=== PATIENT | male | born 1995 | race Two or more races ===

== ENCOUNTER → 2025-03-18 | Outpatient (CLI) | payer OTHER, SELFPAY ==
[2025-03-18 13:58] LABS: Absolute Lymphocyte Count 1.67 X10^3/uL (0.83-4.51); Absolute Neutrophil Count 3.3 X10^3/uL (2.0-7.7); Basophil# 0.03 X10^3/uL; Basophil% 0.5 % (0-1); Eosinophil# 0.15 X10^3/uL; Eosinophils% 2.7 % (0-5); Hematocrit 45.4 % (40-54); Hemoglobin 15.6 g/dL (13.0-16.5); Lymphocyte # 1.67 X10^3/ul (0.83-4.51); Lymphocyte % 30.2 % (19-41); Mean Corp Hgb Conc 34.4 g/dL (32-36); Mean Corpuscular Hgb 26.3 pg (27.0-32.0); Mean Corpuscular Volume 76.6 fL (80-94); Mean Platelet Vol. 9.5 fl (6.2-12.0); Monocyte# 0.33 X10^3/uL; NRBC Flagged by Analyzer 0 % (0-5); Neutrophil # 3.34 X10^3/uL (2.7-7.7); Neutrophil % 60.4 % (47-70); Platelet Count 251 K/mm3 (150-450); RBC Distribution Width SD 33.1 fl (35.1-43.9); Red Blood Count 5.93 M/mm3 (4.6-6.2); White Blood Count 5.5 K/mm3 (4.4-11.0)
[2025-03-18 14:14] LABS: ALB/GLOB Ratio 1.7 RATIO (0.9-2.4); AST(SGOT) 29 U/L (<=37); Alanine Aminotransfer ALT/SGPT 38 U/L (<=46); Albumin, Serum 4.8 g/dL (3.5-5.0); Alkaline Phosphatase 107 U/L (40-129); Anion Gap 10 (5-15); BUN 6 mg/dL (4-19); Calcium,Total 9.6 mg/dL (7.6-11.0); Chloride 102 mmol/L (98-108); Creatinine, Serum 0.72 mg/dL (0.70-1.20); EST Glomerular Filtration Rate 127 (>60); Globulin 2.8 g/dL (2.2-4.2); Glucose 93 mg/dL (70-99); Potassium 4.2 mmol/L (3.3-5.1); Protein, Total 7.6 g/dL (5.9-8.4); Sodium Level 139 mmol/L (133-145); Total Bilirubin 0.47 mg/dL (0.00-1.30)
[2025-03-18 14:34] LABS: CRP < 3.00 mg/L (0.0-3.0)
== END | disposition home or self-care (01) ==
LOC: LAB 12:23
PROVIDERS: PCP Registered Nurse; Referring Provider Nurse Practitioner Acute Care; Visit Provider Nurse Practitioner Acute Care
DX: R10.13 Epigastric pain (principal); R63.4 Abnormal weight loss
CPT/HCPCS: 36415; 80053; 85025; 86140

== ENCOUNTER → 2025-03-19 | Outpatient (CLI) | payer OTHER, SELFPAY ==
[2025-03-22 18:08] LABS: H. PYLORI STOOL AG Positive (Negative)
== END | disposition home or self-care (01) ==
PROVIDERS: PCP Registered Nurse; Referring Provider Nurse Practitioner Acute Care; Visit Provider Nurse Practitioner Acute Care
DX: R10.13 Epigastric pain (principal); R63.4 Abnormal weight loss
CPT/HCPCS: 87338

== ENCOUNTER 2025-05-14 10:53 | Day surgery (SDC) | payer OTHER, SELFPAY ==
[2025-05-14] VITALS (9 sets, daily range): BP systolic 96–113; BP diastolic 50–71; PULSE 59–74; RESP 12–16; TEMP 36.6–37.2; O2SAT 98–100; BMI 24.2
[2025-05-14] MEDS: Lactated Ringers 1,000 ML 15 ML IV (11:38)
--- NOTE | 2025-05-14 11:42 | PRE.ANES_ITS ---
ASA Classification* ASA Classification ASA Classification: 1 Assessment & Plan Anesthesia* Anesthesia Assessment Anesthesia Assessment: Discussed sedation and/or anesthesia options, risks, benefits, and alternatives with patient/parents/legal guardian/POA. Questions invited. The patient/parents/legal guardian/POA seems to understand and agrees to proceed with anesthesia plan. Reviewed the physical assessment, medical history, allergy history and patient home medications list prior to surgery/procedure/anesthetic and documented any changes. Performed airway and anesthesia risk assessments. Anesthesia Type Anesthesia Type: MAC History Source History Obtained from:: Patient and Chart Anesthesia Focused Assessment* Temperature: 98.7 F Pulse Rate: 74 Blood Pressure: 113/71 Respiratory Rate: 16 Pulse Ox: 100 Oxygen Delivery Method: Room Air Airway Assessment Mouth opens: >3 cm Mallampati Score: II Teeth Condition: Intact Neck Range of motion (ROM): Full ROM Labs Anesthesia Preop lab: CBC WBC 5.5 K/mm3 (4.4-11.0) 03/18/25 12:03/18/25 RBC 5.93 M/mm3 (4.6-6.2) 03/18/25 12:03/18/25 Hgb 15.6 g/dL (13.0-16.5) 03/18/25 12:03/18/25 Hct 45.4 % (40-54) 03/18/25 12:03/18/25 Plt Count 251 K/mm3 (150-450) 03/18/25 12:03/18/25 CHEMISTRY Potassium 4.2 mmol/L (3.3-5.1) 03/18/25 12:03/18/25 Sodium 139 mmol/L (133-145) 03/18/25 12:03/18/25 BUN 6 mg/dL (4-19) 03/18/25 12:03/18/25 Creatinine 0.72 mg/dL (0.70-1.20) 03/18/25 12:03/18/25 Glucose 93 mg/dL (70-99) 03/18/25 12:03/18/25 COAG Pre-Assessment Diagnosis/Proposed Procedure Planned Operative Procedure(s): Colonoscopy,EGD Anesthesia History 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 When Was Last Pacemaker Check QUESTION #4 FULL TEXT: You/Your Family Experience fever (hyperthermia) with Anesthesia Last Oral Intake Last Oral intake: Last Oral Intake NPO since 06:00 05/14/25 11:24 Meds taken in AM with sips of No 05/14/25 11:24 water? Meds patient instructed to take am of surgery Any additional information?: Yes NPO since: 06:00 (Patient finished prep at 6 AM.) PONV PONV - hearing aid assembly supervisor: PONV - hearing aid assembly supervisor Female No 05/13/25 08:33 HX of Motion Sickness No 05/13/25 08:33 HX of N/V After Surgery No 05/13/25 08:33 Non-Smoker Yes 05/13/25 08:33 Duration of Surgery greater No 05/13/25 08:33 than 60 minutes Number of Risk Factors 1 05/13/25 08:33 PONV Score Low Risk 05/13/25 08:33 Height & Weight Height & Weight: Anesthesia: Height & Weight Height 6 ft 05/14/25 11:24 Weight: 81 kg 05/14/25 11:24 Body Mass Index (BMI) 24.2 05/14/25 11:24 Respiratory Assessment Respiratory Assessment - hearing aid assembly supervisor: Respiratory Tract Infection Hx - hearing aid assembly supervisor Hx Respiratory Tract Infection No 05/13/25 08:33 STOP Sleep Apnea STOP Sleep Apnea - hearing aid assembly supervisor: STOP Sleep Apnea - hearing aid assembly supervisor Hx Hypertension No 05/13/25 08:33 Hx Sleep Apnea No 05/13/25 08:33 CPAP BIPAP Do you snore loudly (louder No 05/13/25 08:33 than talking or can be heard Do you often feel tired/ No 05/13/25 08:33 fatigued/ sleepy during daytime? Has anyone observed you stop No 05/13/25 08:33 breathing during sleep? STOP Results Negative 05/13/25 08:33 QUESTION #5 FULL TEXT : Do you snore loudly (louder than talking or can be heard through closed doors)? 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 Specify any problems Hx of Preganancy in last 3 N/A 05/13/25 08:33 Months Nurse Filling Out Transfusion JZOLLMIKEL 05/13/25 08:33 & Questions: Date: 05/13/25 05/13/25 08:33 Time: 08:35 05/13/25 08:33 Patient unable to answer at this time (ie. confused, unrespo /Reproduction History /Reproductive History - hearing aid assembly supervisor: /Reproductive Hx- hearing aid assembly supervisor Hx Now No 05/13/25 08:33 Gestational Age (in weeks): EDC: Hx Hx Para Hx Section SAB No 05/13/25 08:33 Active Medications Active Medications: Current Medications Generic Name Dose Route Start Last Admin Trade Name Tyree PRN Reason Stop Dose Admin Lactated Ringer's 1,000 mls @ 15 mls/hr 05/14/25 11:30 05/14/25 11:38 IV 15 mls/hr .Q48H ROSIO Administration PFSH Medical History (Updated 05/13/25 @ 08:33 by Sarah Martin) Gastric reflux Non-smoker Hemorrhoids History of colon polyps Colitis Home Medications ?Medication ?Instructions ?Recorded ?Last Taken ?Type ondansetron HCl 4 mg tablet 4 mg PO .COMPLEX #5 tabs 0 03/18/25 Unknown Rx sodium sul 1.479 gram-potas ch See Rx Instructions PO PER PKG DIR 03/18/25 Unknown Rx 0.188 gram-magnes sul 0.225 gram #24 tabs tablet (Sutab) Allergy/AdvReac Type Severity Reaction Status Date / Time No Known Allergies Allergy Verified 05/14/25 11:22 Surgical History (Updated 05/14/25 @ 11:[address] Les Huerta MD) Hx of left knee surgery Social History (Updated 03/18/25 @ 11:13 by Lavinia Davalos) current occupational status: employed Smoking Status: Never smoker alcohol intake: never substance use type: does not use what type of physical activity do you participate in: weight training Review of Systems (Anesthesia) ROS Narrative System reviewed and no additional complaints, except as documented.
--- NOTE | 2025-05-14 12:00 | COLBX_PTH ---
PATIENT: SALVADOR CALDERON LOC: EN U#:[id number] AGE/SX: 29/M ROOM: RE05/14/[address]: Dr. Chester Nicole DO : 1995 BED: DIS: 05/14/2025 SPEC #: [id number] RECD: 05/14/25 15:53 STATUS: BRADY REJanna #: [id number] GEOVANNA: 05/14/25 12:[address]: Chester Nicole DEPT: SURGICAL PATHOLOGY RECD BY: Jairo Hernandez ENTERED: 05/15/25 09:24 SP TYPE: COLON BX OTHR DR: Ava Story, HEAD IRRIGATOR-C Tissues: A - Gastric mucous membrane B - Duodenum, NOS C - Ileum, NOS D - COLON BIOPSY Procedures: Immunohistochemical Stains Surgery Specimen Level IV HEADER OPERATION: Colonoscopy with biopsy, EGD with biopsy PRE-OP DIAGNOSIS: Abdominal pain, dyspepsia, heartburn, weight loss TISSUE SUBMITTED: A- Gastric body biopsy, B- Duodenum biopsy, C- Terminal ileum biopsy, D- Random colon biopsy MICROSCOPIC DIAGNOSIS A. Gastric body, biopsy: - Oxyntic mucosa with mildly active chronic inflammation. - IHC negative for H.pylori organisms. B. Duodenum, biopsy: - No specific pathologic change. - Negative for increased intraepithelial lymphocytes. C. Terminal ileum, biopsy: - Focal prominent mucosal lymphoid tissue, favor reactive. D. Colon, random biopsy: - No specific pathologic change. MICROSCOPIC DESCRIPTION Slides are reviewed. All matched controls reacted appropriately. These tests were developed and their performance characteristics determined by [facility]. They may not have been cleared or approved by the U.S. Food and Drug Administration. The FDA has determined that such clearance or approval is not necessary. The above immunohistochemical/dualISH markers are viewed by the Pathologist. GROSS DESCRIPTION A. Received in fixative is one container labeled with the patient's name and designated Gastric body biopsy. The specimen consists of four irregular fragments of light dejesus soft tissue that in aggregate measure 0.3 to 0.7 cm. The specimen is totally submitted in one cassette. B. Received in fixative is one container labeled with the patient's name and designated Duodenum biopsy. The specimen consists of two irregular fragments of light dejesus soft tissue that in aggregate measure 0.3 and 0.6 cm. The specimen is totally submitted in one cassette. C. Received in fixative is one container labeled with the patient's name and designated Terminal ileum biopsy. The specimen consists of two irregular fragments of light dejesus soft tissue, each measuring 0.3 cm. The specimen is totally submitted in one cassette. D. Received in fixative is one container labeled with the patient's name and designated Random colon biopsy. The specimen consists of multiple irregular fragments of light dejesus soft tissue that in aggregate measure 1.4 x 0.5 x 0.1 cm. The specimen is totally submitted in one cassette. [place] 05/15/2025 CPT:51138s6,62974
--- NOTE | 2025-05-14 12:38 | HP.PCM_ITS ---
HPI - General General Date of Admission: 05/14/25 Date of Service: 05/22/25 Chief Complaint: Abnormal imaging HPI Narrative SALVADOR CALDERON, is a 29 M who presents abdominal pain with the Chief Complaint: hurting my colon - in 2019 in [facility] - he had hemorrhoids - last July - was having a lot of abdominal pain, lower abdomen - reports he had an US of the colon which revealed colon polyps - colonoscopy/egd was recommended but was in the middle of doing the [employer] process and now ready to do - really watching the dairy and spicy foods, coffee and caffeine - sharp pain, causes him to not move sometimes - reports when he had the US he also had blood work that showed an infection related to the polyps, he was treated and states a follow-up blood test showed the infection was decreasing - Heartburn - not taking any medication - denies any N/V - weight loss of about 15lbs in the past year - denies any dysphagia - he is having a BM daily - Type 6 or Type 3 - blood on tissue - not currently using anything for hemorrhoids - straining with BM at times B: banana, toast L: turkey sandwich, vegetable/fruit D: lean meat, fruit/vegetable - drinks a lot of water - 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 [facility] Medical History Gastric reflux Non-smoker Hemorrhoids History of colon polyps Colitis Home Medications ?Medication ?Instructions ?Recorded ?Last Taken ?Type ondansetron HCl 4 mg tablet 4 mg PO .COMPLEX #5 tabs 0 03/18/25 Unknown Rx sodium sul 1.479 gram-potas ch See Rx Instructions PO PER PKG DIR 03/18/25 Unknown Rx 0.188 gram-magnes sul 0.225 gram #24 tabs tablet (Sutab) Allergy/AdvReac Type Severity Reaction Status Date / Time No Known Allergies Allergy Verified 05/14/25 11:22 Surgical History Hx of left knee surgery Social History current occupational status: employed Smoking Status: Never smoker alcohol intake: never substance use type: does not use what type of physical activity do you participate in: weight training ROS Constitutional Constitutional: Denies fatigue, fever(s), poor appetite, weight gain or weight loss Gastrointestinal Gastrointestinal: Denies belching, bloating, change in bowel habits, change in stool character, chewing difficulty, coffee ground emesis, constipation, cramping, diarrhea, dyspepsia, dysphagia, early satiety, excessive flatus, fecal incontinence, heartburn, hematemesis, hematochezia, hemorrhoids, loose stools, melena, nausea, odynophagia, rectal bleeding, tenesmus, vomiting or weight changes Vital Signs Vital Signs Vital Signs: 05/14/25 11:24 05/14/25 11:24 05/14/25 11:50 Temperature 98.7 F 98.7 F Temperature Source Temporal Pulse Rate 74 74 Respiratory Rate 16 16 Respiratory Pattern Normal Blood Pressure 113/71 113/71 Blood Pressure Mean 85 Blood Pressure Source Monitor Blood Pressure Position Semi-Fowlers Blood Pressure Location Right Arm Pulse Ox 100 100 Oxygen Delivery Method Room Air Room Air Weight Weight: 178 lb 9.191 oz Body Mass Index (BMI) 24.2 Physical Exam Const alert, oriented x3, no apparent distress and healthy appearing General Appearance: cooperative GI normal to inspection, nondistended, normoactive bowel sounds, soft to palpation, non-tender and non-distended Percussion: normal to percussion Rectal Exam: deferred Assessment & Plan Assessment/Plan (1) Weight loss: (2) Heartburn: (3) Dyspepsia: (4) Abdominal pain: PLAN: Assessment and Plan Assessment and Plan (1) Abdominal pain: Status: Acute (2) Dyspepsia: Status: Acute (3) Heartburn: Status: Acute (4) Weight loss: Status: Acute Orders: Orders CBC W/Diff, Automated Today R10.13 - Epigastric pain, R10.9 - Unspecified abdominal pain, R12 - Heartburn, R63.4 - Abnormal weight loss Comprehensive Metabolic Profil Today R10.13 - Epigastric pain, R10.9 - Unspecified abdominal pain, R12 - Heartburn, R63.4 - Abnormal weight loss CRP Today R10.13 - Epigastric pain, R10.9 - Unspecified abdominal pain, R12 - Heartburn, R63.4 - Abnormal weight loss H. PYLORI STOOL AG Today R10.13 - Epigastric pain, R10.9 - Unspecified abdominal pain, R12 - Heartburn, R63.4 - Abnormal weight loss Medications: New pantoprazole take once daily 30 minutes before a meal 40 mg PO QDAY 30 tabs 3RF sod sulf-pot chloride-mag sulf 1.479-0.188- 0.225 gram (Sutab) as directed for split dose bowel prep 24 tabs 0RF ondansetron HCl 4 mg orally; one every 4 hours as needed for N/V during bowel prep 5 tabs 0RF Plan 29y/o male presents for initial consultation with complaints of lower abdominal pain, change in bowel habits, weight loss, and heartburn. He recently moved to the [facility] from [facility]. He was experiencing the symptoms this past July when living in [facility] and reports a pelvic abdominal ultrasound revealed polyps in the colon and blood work revealed an infection related to the colon polyps. He reports he was treated and follow-up blood work showed resolving infection. I have ordered labs, H. pylori stool testing and scheduled him for bidirectional endoscopies. He will start a daily PPI after completion of stool testing. Note: Syntertainment speech recognition chief transfer and pumphouse operator software was used to create portions of this document. Sound-alike and misspelled words, as well as other chief transfer and pumphouse operator errors may be contained in the documentation. Patient Instructions: Complete labs and stool testing Fibercon 2 tablets once daily with 8 ounces of water after a meal. May take up to 3 weeks for symptom improvement. Start a probiotic (Align, Culturelle or [employer]) once daily. These are all multispecies probiotics, pick the cheapest one. Pantoprazole 40mg once daily - do not start until after completion of stool collection Colonoscopy and EGD - SuFlave Follow-up in office post procedures
--- NOTE | 2025-05-14 13:21 | PCM.POST.ANE ---
Anesthesia: Postop Eval I Current Vital Signs Temperature: 97.8 F Pulse Rate: 65 Blood Pressure: 98/54 Respiratory Rate: 12 Pulse Ox: 98 Oxygen Delivery Method: Room Air Assessment Airway patent: Yes Spontaneous unlabored respirations: Yes Mental status: Awake and Calm nausea: No Vomiting: No Anesthesia Complication: No Fluid Hydration Crystalloid volume administer (ml): 300 Total IV fluid infused: 300 Progress Note Anesthesia document: Postop Eval 1 completed: Yes
--- NOTE | 2025-05-14 13:25 | OP.EGD_ITS ---
Patient Name: Uri Hill Procedure Date: 05/14/2025 12:38 PM Date of : 1995 Age: 29 Procedure: Upper GI endoscopy Indications: Epigastric abdominal pain, Dyspepsia, Indigestion Providers: Chester Nicole DO Referring MD: Vitaliy Frias Medicines: Monitored Anesthesia Care Patient Profile: This is a 29 year old male. Refer to note in patient chart for documentation of history and physical. Patient has symptoms. Complications: No immediate complications. Procedure: Pre-Anesthesia Assessment: - Prior to the procedure, a History and Physical was performed, and patient medications and allergies were reviewed. The patient is competent. The risks and benefits of the procedure and the sedation options and risks were discussed with the patient. All questions were answered and informed consent was obtained. Patient identification and proposed procedure were verified by the physician in the pre-procedure area. Mental Status Examination: alert and oriented. Airway Examination: normal oropharyngeal airway and neck mobility. Respiratory Examination: clear to auscultation. CV Examination: normal. Prophylactic Antibiotics: The patient does not require prophylactic antibiotics. Prior Anticoagulants: The patient has taken no anticoagulant or antiplatelet agents except for NSAID medication. ASA Grade Assessment: II - A patient with mild systemic disease. After reviewing the risks and benefits, the patient was deemed in satisfactory condition to undergo the procedure. The anesthesia plan was to use monitored anesthesia care (MAC). Immediately prior to administration of medications, the patient was re-assessed for adequacy to receive sedatives. The heart rate, respiratory rate, oxygen saturations, blood pressure, adequacy of pulmonary ventilation, and response to care were monitored throughout the procedure. The physical status of the patient was re-assessed after the procedure. After obtaining informed consent, the endoscope was passed under direct vision. Throughout the procedure, the patient's blood pressure, pulse, and oxygen saturations were monitored continuously. The Colonoscope was introduced through the mouth, and advanced to the fourth part of the duodenum. Small bowel enteroscopy was deemed necessary. The upper GI endoscopy was accomplished without difficulty. The patient tolerated the procedure well. Scope In: 12:55:07 PM Scope Out: 12:58:04 PM Total Procedure Duration Time 0 hours 2 minutes 57 seconds Findings: The examined esophagus was normal. Patchy moderately erythematous mucosa with bleeding was found in the gastric body. Biopsies were taken with a cold forceps for histology. Verification of patient identification for the specimen was done. Biopsies were taken with a cold forceps for Helicobacter pylori testing. Verification of patient identification for the specimen was done. Estimated blood loss was minimal. Patchy moderately erythematous mucosa without active bleeding and with no stigmata of bleeding was found in the entire duodenum. Biopsies were taken with a cold forceps for histology. Verification of patient identification for the specimen was done. Estimated blood loss was minimal. Impression: - Normal esophagus. - Erythematous mucosa in the gastric body. Biopsied. - Erythematous duodenopathy. Biopsied. Recommendation: - Discharge patient to home. - Continue present medications. Procedure Code(s): --- Professional --- 33943, Small intestinal endoscopy, enteroscopy beyond second portion of duodenum, not including ileum; with biopsy, single or multiple CPT copyright 2021 [employer]. All rights reserved. The codes documented in this report are preliminary and upon tank shop supervisor review may be revised to meet current compliance requirements. Chester Nicole DO 05/14/2025 1:24:51 PM This report has been signed electronically. Number of Addenda: 0 Note Initiated On: 05/14/2025 12:38 PM
--- NOTE | 2025-05-14 13:25 | OP.PROVAT_ITS ---
05/14/2025 Vitaliy Frias Re : Upper GI endoscopy procedure for Uri Hill Dear Jez This procedure was performed on Wednesday, May 14, 2025. My impressions and recommendations are as follows: Impressions : - Normal esophagus. - Erythematous mucosa in the gastric body. Biopsied. - Erythematous duodenopathy. Biopsied. Recommendations : - Discharge patient to home. - Continue present medications. My findings are described in the full procedure note, which is enclosed. If I can be of further assistance, please feel free to contact me at . Sincerely, Chester Nicole, 05/14/2025 1:24:51 PM This report has been signed electronically.
--- NOTE | 2025-05-14 13:28 | OP.PROVAT_ITS ---
05/14/2025 Vitaliy Frias Re : Colonoscopy procedure for Uri Hill Dear Jez This procedure was performed on Wednesday, May 14, 2025. My impressions and recommendations are as follows: Impressions : - Congested mucosa in the recto-sigmoid colon, in the transverse colon and in the ascending colon. Biopsied. - The examined portion of the ileum was normal. Biopsied. Recommendations : - Discharge patient to home. - Resume previous diet. - Continue present medications. - Await pathology results. - Repeat colonoscopy for surveillance based on pathology results. My findings are described in the full procedure note, which is enclosed. If I can be of further assistance, please feel free to contact me at . Sincerely, Chester Nicole, 05/14/2025 1:27:54 PM This report has been signed electronically.
--- NOTE | 2025-05-14 13:28 | OP.COLON_ITS ---
Patient Name: Uri Hill Procedure Date: 05/14/2025 12:58 PM Date of : 1995 Age: 29 Procedure: Colonoscopy Indications: Generalized abdominal pain, Clinically significant diarrhea of unexplained origin Providers: Chester Nicole DO Referring MD: Vitaliy Frias Medicines: Monitored Anesthesia Care Patient Profile: This is a 29 year old male. Refer to note in patient chart for documentation of history and physical. Patient has symptoms. Last Colonoscopy: none. The patient's first colonoscopy is today. Complications: No immediate complications. Procedure: Pre-Anesthesia Assessment: - Prior to the procedure, a History and Physical was performed, and patient medications and allergies were reviewed. The patient is competent. The risks and benefits of the procedure and the sedation options and risks were discussed with the patient. All questions were answered and informed consent was obtained. Patient identification and proposed procedure were verified by the physician in the pre-procedure area. Mental Status Examination: alert and oriented. Airway Examination: normal oropharyngeal airway and neck mobility. Respiratory Examination: clear to auscultation. CV Examination: normal. Prophylactic Antibiotics: The patient does not require prophylactic antibiotics. Prior Anticoagulants: The patient has taken no anticoagulant or antiplatelet agents except for NSAID medication. ASA Grade Assessment: II - A patient with mild systemic disease. After reviewing the risks and benefits, the patient was deemed in satisfactory condition to undergo the procedure. The anesthesia plan was to use monitored anesthesia care (MAC). Immediately prior to administration of medications, the patient was re-assessed for adequacy to receive sedatives. The heart rate, respiratory rate, oxygen saturations, blood pressure, adequacy of pulmonary ventilation, and response to care were monitored throughout the procedure. The physical status of the patient was re-assessed after the procedure. After I obtained informed consent, the scope was passed under direct vision. Throughout the procedure, the patient's blood pressure, pulse, and oxygen saturations were monitored continuously. The Colonoscope was introduced through the anus and advanced to the terminal ileum. The colonoscopy was performed without difficulty. Scope In: 1:00:16 PM Scope Withdrawal Time 0 hours 5 minutes 50 seconds Scope Out: 1:09:53 PM Total Procedure Duration Time 0 hours 9 minutes 37 seconds Findings: The perianal and digital rectal examinations were normal. An area of mildly congested mucosa was found in the recto-sigmoid colon, in the transverse colon and in the ascending colon. Biopsies were taken with a cold forceps for histology. Verification of patient identification for the specimen was done. Estimated blood loss was minimal. The terminal ileum appeared normal. Biopsies were taken with a cold forceps for histology. Verification of patient identification for the specimen was done. Estimated blood loss was minimal. Impression: - Congested mucosa in the recto-sigmoid colon, in the transverse colon and in the ascending colon. Biopsied. - The examined portion of the ileum was normal. Biopsied. Recommendation: - Discharge patient to home. - Resume previous diet. - Continue present medications. - Await pathology results. - Repeat colonoscopy for surveillance based on pathology results. Procedure Code(s): --- Professional --- 67648, Colonoscopy, flexible; with biopsy, single or multiple CPT copyright 2021 [employer]. All rights reserved. The codes documented in this report are preliminary and upon instrument and electrical technician review may be revised to meet current compliance requirements. Chester Nicole DO 05/14/2025 1:27:54 PM This report has been signed electronically. Number of Addenda: 0 Note Initiated On: 05/14/2025 12:58 PM
--- NOTE | 2025-05-14 20:24 | POSTOPAN2_ITS ---
Anesthesia Postop Eval I Sum Postop Eval Completion status Anesthesia document: Postop Eval 1 completed: Yes Anesthesia Postop Eval I Summary Anesthesia Postop Eval I Summary: Anesthesia Postop Eval I: Assessment Summary Airway patent Yes 05/14/25 13:22 GENERAL MAINTENANCE [email or web address] Spontaneous unlabored Yes 05/14/25 13:22 GENERAL MAINTENANCE ENGINEER.[email or web address] respirations Mental status Awake,Calm 05/14/25 13:22 GENERAL MAINTENANCE ENGINEER.GDOTT nausea No 05/14/25 13:22 GENERAL MAINTENANCE ENGINEER.[email or web address] Vomiting No 05/14/25 13:22 GENERAL MAINTENANCE ENGINEER.[email or web address] Anesthesia Postop Eval I: Fluid Summary Crystalloid volume administer 300 05/14/25 13:22 GENERAL MAINTENANCE ENGINEER.GDOTT (ml) Colloids volume administered ( ml) Blood Product volume administered (ml) Total IV fluid infused 300 05/14/25 13:22 GENERAL MAINTENANCE ENGINEER.GDOTT Anesthesia Postop Eval I: Summary Notes Anesthesia Complication No 05/14/25 13:22 GENERAL MAINTENANCE ENGINEER.[email or web address] Anesthesia Complication Comment: Post-operative progress note Anesthesia: Postop Eval II Evaluation Mental status: Awake and Calm Pain Level: 0 nausea: No Vomiting: No Complications Anesthesia Complication: No
--- NOTE | 2025-05-14 20:24 | PCM.POSTANE2 ---
Anesthesia Postop Eval I Sum Postop Eval Completion status Anesthesia document: Postop Eval 1 completed: Yes Anesthesia Postop Eval I Summary Anesthesia Postop Eval I Summary: Anesthesia Postop Eval I: Assessment Summary Airway patent Yes 05/14/25 13:22 [email or web address] Spontaneous unlabored Yes 05/14/25 13:22 FLEXIBLE [email or web address] respirations Mental status Awake,Calm 05/14/25 13:22 FLEXIBLE [email or web address] nausea No 05/14/25 13:22 FLEXIBLE [email or web address] Vomiting No 05/14/25 13:22 FLEXIBLE [email or web address] Anesthesia Postop Eval I: Fluid Summary Crystalloid volume administer 300 05/14/25 13:22 [email or web address] (ml) Colloids volume administered ( ml) Blood Product volume administered (ml) Total IV fluid infused 300 05/14/25 13:22 FLEXIBLE [email or web address] Anesthesia Postop Eval I: Summary Notes Anesthesia Complication No 05/14/25 13:22 FLEXIBLE [email or web address] Anesthesia Complication Comment: Post-operative progress note Anesthesia: Postop Eval II Evaluation Mental status: Awake and Calm Pain Level: 0 nausea: No Vomiting: No Complications Anesthesia Complication: No
== END 2025-05-14 14:21 | disposition home or self-care (01) ==
LOC: EN 10:55 → AC 10:58
PROVIDERS: PCP Registered Nurse; Referring Provider Registered Nurse; Visit Provider Internal Medicine Gastroenterology
PROC: 0DJD8ZZ Inspection of Lower Intestinal Tract, Via Natural or Artificial Opening Endoscopic (ICD-10-PCS; CPT 45378; principal; 2025-05-14 11:55)
DX: K29.50 Unspecified chronic gastritis without bleeding (principal); K21.9 Gastro-esophageal reflux disease without esophagitis; R63.4 Abnormal weight loss; R19.7 Diarrhea, unspecified; Z68.24 Body mass index [BMI] 24.0-24.9, adult; Z87.19 Personal history of other diseases of the digestive system; Z79.899 Other long term (current) drug therapy; Z86.0100 Personal history of colon polyps, unspecified
CPT/HCPCS: 44361; 45380; 88305; 88342; J2405